=== PATIENT | male | born 1980 | race Caucasian/White ===

== ENCOUNTER 2019-04-09 12:07 | Outpatient (CLI) | payer OTHER ==
--- NOTE | 2019-04-10 08:59 | MRI Report ---
Reason: PAIN IN UNSPECIFIED HIP Procedure Date: 04/09/2019 Accession Number: [id number] / [id number] Procedure: MRI - Hip LT W/O CPT Code: FULL RESULT: EXAM: LEFT HIP MRI WITHOUT CONTRAST EXAM DATE: 04/09/2019 12:53 PM. CLINICAL HISTORY: Bilateral hip pain. No known injury. COMPARISON: None. TECHNIQUE: Multiplanar, multisequence T1-weighted and fluid-sensitive, small syjiv-nl-sssd sequences of the hip and large tphss-iu-ctjq sequences of the pelvis without contrast. Other: None. FINDINGS: Bones: No fractures or subluxations. No marrow edema or bone lesions. Left Hip: No acetabular retroversion. Small acetabular and femoral head osteophytes with decreased femoral head neck offset. No effusion or loose bodies. Mild narrowing of the anterosuperior cartilage. Small amount of anterosuperior acetabular subcortical edema. 0.5 cm T2 bright tear through the anterior superior labrum with 2 adjacent para-acetabular cysts measuring 2 x 1 cm laterally and 1 cm medially. The ligamentum teres is intact. Other Joints: Probable right acetabular labral tear with a small 0.8 cm anterior para-labral cyst. L5-S1 spinal fusion, partially visualized. Musculature: No edema or fatty atrophy. The gluteus medius and minimus tendons are normal. The visualized hamstring tendons are normal. The ischiofemoral space is normal. Pelvic Cavity: The visualized viscera are unremarkable. No lymphadenopathy. No free fluid in the pelvis. Other: The visualized sciatic nerves are unremarkable. No bursitis. The subcutaneous tissues are unremarkable. IMPRESSION: 1. Mild left hip degenerative joint disease with a small acetabular labral tear and para-labral cyst. 2. Probable small right acetabular labral tear. RADIA
--- NOTE | 2019-04-10 09:09 | MRI Report ---
Reason: PAIN IN UNSPECIFIED HIP Procedure Date: 04/09/2019 Accession Number: [id number] / [id number] Procedure: MRI - Hip RT W/O CPT Code: FULL RESULT: EXAM: RIGHT HIP MRI WITHOUT CONTRAST EXAM DATE: 04/09/2019 12:54 PM. CLINICAL HISTORY: Bilateral hip pain. COMPARISON: None. TECHNIQUE: Multiplanar, multisequence T1-weighted and fluid-sensitive, small akehq-oa-vpte sequences of the hip and large wzokj-bz-icby sequences of the pelvis without contrast. Other: None. FINDINGS: Bones: No fractures or subluxations. No marrow edema or bone lesions. Right Hip: No acetabular retroversion. Probable minimal acetabular osteophyte formation. Decreased femoral head neck offset, either small osteophyte or congenital. No effusion or loose bodies. Mild narrowing of the anterosuperior cartilage with small focus of subcortical cyst formation in the acetabulum. 1 cm anterior acetabular labral tear with a 1.7 x 0.6 cm anteroinferior paralabral cyst. Ligamentum teres intact. Other Joints: Mild left hip degenerative joint disease, acetabular labral tear and small para labral cyst. L5-S1 fusion, partially visualized. Musculature: No edema or fatty atrophy. The gluteus medius and minimus tendons are normal. The visualized hamstring tendons are normal. The ischiofemoral space is normal. Pelvic Cavity: The visualized viscera are unremarkable. No lymphadenopathy. No free fluid in the pelvis. Other: The visualized sciatic nerves are unremarkable. No bursitis. The subcutaneous tissues are unremarkable. IMPRESSION: 1. Anterior right acetabular labral tear with anteroinferior paralabral cyst. Early degenerative changes in the right hip. 2. Similar appearance of the left hip with anterosuperior labral tear and paralabral cyst formation. Early degenerative changes. RADIA
== END 2019-04-09 12:08 | disposition home or self-care (01) ==
LOC: DI 12:07
PROVIDERS: ATTEND Radiology Diagnostic Radiology
DX: M16.0 Bilateral primary osteoarthritis of hip (principal); S73.192A Other sprain of left hip, initial encounter; S73.191A Other sprain of right hip, initial encounter

== ENCOUNTER 2020-08-18 13:59 | Emergency (ER) | payer OTHER ==
--- NOTE | 2020-08-18 14:59 | ED Physician Documentation ---
PD HPI SKIN - Stated complaint Stated Complaint: BEE STING LT HAND - Chief complaint Chief Complaint: Allergic Rx - History obtained from History obtained from: Patient - History of Present Illness Timing - onset: How many days ago (2) Timing - details: Abrupt onset Location: LUE Quality / character: Itchy, Painful, Burning, Swelling Improved by: Other (Tried benadryl w/o relief) Associated symptoms: No: Fever, Myalgias, Joint pain, Headache, Facial swelling, Dyspnea, Abd pain, N/V/D Contributing factors: Insect bite /sting Similar symptoms before: Has not had sx before Recently seen: Not recently seen - Additional information Additional information: 40 yo M presented w/ left hand pain, burning, and swelling. Sx started 2 days ago after getting stung by a bee on the left 3rd finger. Had some mild swelling and pruritis at that time, took benadryl w/o relief. Today swelling and redness worsened and traveled into the hand and wrist. Sx occurred while he was flying and he had to land early due to pain/swelling. Denies fever, chills, flu like sx. No hx/o cellulitis or abscess in the past. No hx/o severe reaction to bee stings or insect bites. Review of Systems Constitutional: reports: Reviewed and negative Cardiac: reports: Reviewed and negative Respiratory: reports: Reviewed and negative GI: reports: Reviewed and negative Skin: reports: Rash, Bite / sting Musculoskeletal: reports: Reviewed and negative Neurologic: reports: Reviewed and negative PD PAST MEDICAL HISTORY - Past Medical History Past Medical History: No Cardiovascular: None Respiratory: None Neuro: None Endocrine/Autoimmune: None GI: None : None HEENT: None Psych: None Musculoskeletal: None Derm: None - Past Surgical History Past Surgical History: Yes Ortho: Spine surgery, Other - Present Medications Home Medications: Ambulatory Orders Medication Instructions Recorded Confirmed Cyclobenzaprine [Flexeril] 10 mg PO TID 05/10/14 05/10/14 RX: Oxycodone HCl 5 mg PO Q6HR 05/10/14 05/10/14 cephALEXin [Keflex] 500 mg PO Q6H #28 capsule 05/11/14 Cephalexin [Keflex] 500 mg PO Q6H #28 capsule 08/18/20 RX: Famotidine 20 mg PO BID #10 tablet 09/21/20 RX: predniSONE [Prednisone] 40 mg PO DAILY #10 tablet 08/18/20 - Allergies Allergies/Adverse Reactions: Allergies Allergy/AdvReac Type Severity Reaction Status Date / Time No Known Drug Allergies Allergy Verified 08/18/20 14:02 - Social History Does the pt smoke?: No Smoking Status: Never smoker Does the pt drink ETOH?: No Does the pt have substance abuse?: No - Immunizations Immunizations are current?: Yes - POLST Patient has POLST: No PD ED PE NORMAL - Vitals Vital signs reviewed: Yes - General General: Alert and oriented X 3, No acute distress, Well developed/nourished - Cardiac Cardiac: RRR, No murmur - Respiratory Respiratory: No respiratory distress, Clear bilaterally - Abdomen Abdomen: Normal bowel sounds, Non tender, Non distended, No organomegaly - Derm Derm: Other (erythema of dorsum of hand and fingers extends into the wrist. no streaking up the forearm. tender, generally swollen, no focal area of induration of fluctuance. ) - Extremities Extremities: Other (tender and swollen left hand as above, moves fingers/wrist w/o difficulty. ) - Neuro Neuro: Alert and oriented X 3 Eye Opening: Spontaneous Motor: Obeys Commands Verbal: Oriented GCS Score: 15 - Psych Psych: Normal mood, Normal affect Results - Vitals Vitals: Vital Signs - 24 hr 08/18/20 14:02 Temperature 36.5 C Heart Rate 65 Respiratory 16 Rate O2 Saturation 97 Oxygen O2 Source Room air PD MEDICAL DECISION MAKING - ED course Complexity details: considered differential, d/w patient ED course: 40 yo M presented w/ left hand pain/swelling after a bee sting 2 days ago. Sx worsening. Hand is warm, tender, suggestive of cellulitis in addition to bee sting. He has no fever or systemic sx. I will treat therefore w/ PO keflex for cellulitis and pt to continue benadryl/famotidine and add pred burst for allergic reaction. He is to keep hand elevated, may use cool compress and tylenol for pain relief. Pt advised of return precautions. Departure - Departure Disposition: 01 Home, Self Care Clinical Impression: Insect bites and stings Qualifiers: Encounter type: initial encounter Qualified Code(s): W57.XXXA - Bitten or stung by nonvenomous insect and other nonvenomous arthropods, initial encounter Cellulitis Qualifiers: Site of cellulitis: extremity Site of cellulitis of extremity: upper extremity Laterality: left Qualified Code(s): L03.114 - Cellulitis of left upper limb Condition: Good Record reviewed to determine appropriate education?: Yes Instructions: ED Bite Sting Insect Gen Allergic React, ED Infec Skin Cellulitis Prescriptions: RX: Famotidine 20 mg PO BID #10 tablet Cephalexin [Keflex] 500 mg PO Q6H #28 capsule RX: predniSONE [Prednisone] 40 mg PO DAILY #10 tablet Comments: You presented w/ left hand pain, swelling, and itching after a bee sting. We are treating you for cellulitis which is an infection under the skin that can occur anytime there is a break in the skin such as from a sting, bite, or cut. Please take antibiotics as prescribed and keep hand elevated whenever possible. You may try an ice pack for swelling. Continue benadryl every 6 hours for itchiness and you may take tylenol as needed for pain. If you develop a fever, increased pain/redness/swelling, or otherwise worsening symptoms, please return to the ER or follow up with your primary doctor.
[2020-08-18 15:08] VITALS: BP 131/79
== END 2020-08-18 15:10 | disposition home or self-care (01) ==
LOC: ED 13:59
DX: T63.441A Toxic effect of venom of bees, accidental (unintentional), initial encounter (principal); L03.114 Cellulitis of left upper limb
CPT/HCPCS: 99283; 99284